=== PATIENT | male | born 1955 | race Caucasian/White ===

== ENCOUNTER 2016-11-06 08:48 | Inpatient (IN) ==
[2016-11-06 10:12] LABS: Basophils # 0.1 K/mcL (0.0-0.2); Basophils % 0.8 %; Eosinophils # 0.1 K/mcL (0.0-0.6); Eosinophils % 1.7 %; Hematocrit 41.5 % (37.5-50.1); Hemoglobin 13.7 g/dL (12.9-16.9); Immature Granulocytes % 0.5 % (0-4); Lymphocytes # 1.6 K/mcL (0.6-4.6); Lymphocytes % 24.2 %; Mean Corpuscular Hemoglobin 30.5 pg (28.0-33.3); Mean Corpuscular Volume 92.4 fL (83.0-100.0); Mean Platelet Volume 9.8 fL (9.4-12.4); Monocytes # 0.5 K/mcL (0.0-1.3); Monocytes % 7.1 %; Neutrophils # 4.2 K/mcL (1.6-8.9); Platelet Count 183 K/mcL (140-400); Red Blood Count 4.49 M/mcL (4.19-5.50); Red Cell Distribution Width 14.3 % (11.5-14.5); Segmented Neutrophils % 65.7 %
--- NOTE | 2016-11-06 10:13 | Orthopedic History & Physical ---
Date of Encounter: 11/06/16 Time of Encounter: 08:00 Assessment and Plan (1) Closed traumatic dislocation of right glenohumeral joint Current visit: Yes Status: Acute BWC* Patient seen today for fracture dislocation of the right shoulder. BWC - work related injury. Recommendation is for admission, STAT CT scan, and plan for either arthroscopic labral repair and rotator cuff repair versus open reduction internal fixation of the right shoulder. This is based on the fact that the x- ray shows small fragments of bone which may not be amenable to fixation with a plate and screws. This will be determined by CAT scan. We reviewed the risks and benefits as well as recovery. All questions were answered. The patient agreed to this treatment plan and appeared to understand the plan is reviewed. CBC, BMP, PT/INR and EKG ordered for pre-operative assessment. Code(s): S43.004A - Unspecified dislocation of right shoulder joint, initial encounter SNOMED Code(s): 45476370084931243 (2) Glenoid fracture of shoulder Current visit: Yes Status: Acute Qualifiers: Encounter type: initial encounter Fracture type: closed Laterality: right Qualified Code(s): S42.141A - Displaced fracture of glenoid cavity of scapula, right shoulder, initial encounter for closed fracture; S42.151A - Displaced fracture of neck of scapula, right shoulder, initial encounter for closed fracture Code(s): S42.143A - Displaced fracture of glenoid cavity of scapula, unspecified shoulder, initial encounter for closed fracture; S42.153A - Displaced fracture of neck of scapula, unspecified shoulder, initial encounter for closed fracture SNOMED Code(s): 45476875 (3) Obesity Current visit: Yes Status: Chronic Qualifiers: Obesity type: due to excess calories Obesity classification: unspecified obesity classification Serious obesity comorbidity presence: without serious comorbidity Qualified Code(s): E66.09 - Other obesity due to excess calories History of Present Illness Chief complaint: Right Shoulder Fracture/Dislocation HPI: Mr. Rodriguez is a 60 year old male, who was seen in the office today by . History obtained from 's office note from this morning. Patient here for evaluation of his right shoulder. Patient reports a fall at work on Sunday injuring the right shoulder. This was issued with acute pain and decreased motion. Patient denies any significant problems with the shoulder prior to this. Patient was seen in the emergency room diagnosed with a fracture dislocation of the right shoulder. Multiple attempts at closed reduction were performed by the ER staff they were successful in reducing the shoulder but it would not stay reduced. Patient was discharged in a sling with the shoulder dislocated. Patient presents today with a dislocated right shoulder Vital Signs BP 134/88 mm Hg, Ht 69 in, Wt 320.10 lbs, BMI 47.27 Index, RR 18 /min, Pain scale 6 1-10. Physical Examination Well-nourished well-developed no acute distress Right upper extremity In sling Reports normal sensation in the axillary patch area on the right as compared to the left but does say this was numb yesterday. Neurovascular intact distally No motion attempted secondary to dislocation. Past Med Surg Social Fam HX - Past Medical History Medical history: no medical history Psychiatric history: no psych history - Social History Smoking Status: Never smoker Smokeless Tobacco Status: No Alcohol use: none Drug use: none - Family History Mother Hx Family Cardiac Disorders: Yes Medications and Allergies HYDROcodone/Acet 5/325 mg [[place] 5-325 mg] 1 tab PO Q6H PRN #10 tab 11/04/16 [Rx ] Naproxen [Naprosyn] 500 mg PO BID PRN #15 tablet 11/04/16 [Rx] 3 Allergy/AdvReac Type Severity Reaction Status Date / Time No Known Allergies Allergy Verified 11/04/16 12:28 All Systems Reviewed: A 10-system review of systems was performed and is negative for pertinent findings except as documented above in the HPI. - Constitutional Constitutional: as per HPI - Cardiovascular Cardiovascular: as per HPI - Respiratory Respiratory: as per HPI - Musculoskeletal Musculoskeletal: as per HPI Physical Exam - Constitutional Exam: See H&P Results - Labs Result Diagrams: 11/06/16 10:02 Labs: All other labs normal.
[2016-11-06 10:23] LABS: INR 1.1; Prothrombin Time 12.1 Seconds (9.4-12.1)
[2016-11-06 10:25] LABS: BUN/Creatinine Ratio 17 (6-26); Blood Urea Nitrogen 19 mg/dL (8-26); Calcium 9.3 mg/dL (8.6-10.8); Carbon Dioxide 28 mEq/L (19-29); Chloride 102 mEq/L (98-109); Glucose 136 mg/dL (70-99); Osmolality,Calculated 294 (280-300); Potassium 3.6 mEq/L (3.5-4.5); Sodium 140 mEq/L (136-145); eGFR For African Americans > 60 (> 60); eGFR For Non-African Americans > 60 (> 60)
[2016-11-06] MEDS ORDERED: *HR* HYDROcodone/Acet 5/325 mg TABLET PO PRN (11:34)
--- NOTE | 2016-11-06 14:53 | Anesthesia Evaluation PreOp ---
Date of Encounter: 11/06/16 Time of Encounter: 14:50 - Past History Planned Operation: ORIF Rt Humerus Cardiac History: Denies any Significant Hx Pulmonary History: Denies Any Significant HX PRODUCE TEAM LEAD History: Denies Any Significant HX Other Medical History: Other (Morbid Obesity) Anesthesia History: No Prior Anesthetic Complications Alcohol Use: none Drug use: none Medications and Allergies HYDROcodone/Acet 5/325 mg [[place] 5-325 mg] 1 tab PO Q6H PRN #10 tab 11/04/16 [Rx ] Naproxen [Naprosyn] 500 mg PO BID PRN #15 tablet 11/04/16 [Rx] 3 Allergy/AdvReac Type Severity Reaction Status Date / Time No Known Allergies Allergy Verified 11/04/16 12:28 - Meds/Allergy Pre-op Review Medications Reviewed: Yes Allergies Reviewed: Yes Beta Blockers on Current Med List: No Anesthesia Results - Labs 11/06/16 10:02 11/06/16 10:02 Anesthesia Exam O2 Sat Height 1.78 m Weight 142.882 kg O2 Sat by Pulse Oximetry 98 Vital Signs Temp Pulse Resp BP Pulse Ox 98.5 F 94 18 158/90 98 11/06/16 12:29 11/06/16 12:29 11/06/16 12:29 11/06/16 12:29 11/06/16 12:29 Height: 5'10 Weight: 315 lbs NPO (# of Hours): MN Pain Scale: 3 - HEENT Pupil (Motor): Pupils equal, EOMI Mallampati: III Teeth: Normal Oral Opening: Less than or equal to 3 - PRODUCE TEAM LEAD LOC: Oriented [employer]ODUCE [employer] LEAD Motor: Normal RUE, Normal LUE, Normal RLE, Normal LLE, Normal Face [employer]ODUCE TE[employer] LEAD Sensory: Normal: RUE, LUE, RLE, LLE, Face - Cardiac Rhythm: Regular Murmur: None JVD: No Carotid Bruit: No - Pulmonary Breath Sounds: bilateral Clear Respiratory Effort: Symmetrical Anesthesia Assess/Plan ASA Score: 3 (MO) Modified [place] Scale for Level of Consciousness: Cooperative, oriented, and tranquil Anesthetic Plan: General, Regional Monitoring Plan: Standard Monitors Recovery Plan: PACU (Discussed GA and posible RA, agrees to proceed)
[2016-11-06] MEDS ORDERED: Famotidine 20 MG/2 ML VIAL ONE (14:57)
[2016-11-06] MEDS ORDERED: Acetaminophen IV 1,000 MG/100 ML INFUS..BTL ONE (14:57)
[2016-11-06] MEDS ORDERED: ROPIVACAINE HCL/PF 0.5% 30 ML VIAL ONE (14:57)
[2016-11-06] MEDS ORDERED: *HR* FentaNYL (PF) 100 MCG/2 ML VIAL ONE ×2 (14:58→15:32)
[2016-11-06] MEDS ORDERED: Lidocaine -MPF 2% 2 ML VIAL ONE (14:58)
[2016-11-06] MEDS ORDERED: *HR* Succinylcholine 200 MG/10 ML VIAL IVP ONE (14:58)
[2016-11-06] MEDS ORDERED: *HR* Midazolam HCl 2 MG/2 ML VIAL ONE (14:58)
[2016-11-06] MEDS ORDERED: *HR* Propofol 200 MG/20 ML VIAL IVP ONE ×2 (14:58→16:11)
[2016-11-06] MEDS ORDERED: ceFAZolin 3,000 MG in D5% in Water 100 ML IVPB ONE (15:06)
[2016-11-06] MEDS ORDERED: Lidocaine -MPF 4% 5 ML AMPUL ONE (15:20)
[2016-11-06] MEDS ORDERED: Ondansetron 4 MG/2 ML VIAL ONE (15:32)
[2016-11-06] MEDS ORDERED: Dexamethasone 4 MG/ML VIAL ONE (15:32)
--- NOTE | 2016-11-06 15:59 | Anesthesia Procedures ---
Date of Encounter: 11/06/16 Time of Encounter: 14:50 Procedures: Anesthesia - Nerve Block Procedure Date: 11/06/16 Time: 15:15 Pre-op Diagnosis: Fracture Rt Humerus Surgical Procedure: ORIF Humerus Checklist: Correct Patient Identifier Correct side: Right Blood Thinner: No Monitor Applied: EKG, BP, Pulse Oximetry Supplemental Oxygen via Nasal Cannula (L/min): 2 Sedation: Versed (mg): 2 Sedation: Fentanyl (mcg): 100 Indication: Post Op Analgesia Pre-op Neuro Deficits: No Block Type: Supraclavicular Catheter placed: No Depth at skin (cm): 4 Sterile Technique: Yes Ultrasound used: Yes Anatomy identified: Yes Visual spread of Local: Yes Neuro Stimulation: No Blood on Needle Aspiration: No Smooth Injection of Local: Yes Pain with Injection of Local: No Prep: Chlorhexadine Needle: 22 x 50 mm Stimuplex Local: Ropivacaine (0.5%) Volume (cc): 30 Number of Attempts: 1 Complications: None/effective block Vitals: Vital Signs/O2 Sat/Glucose, Most Current Temp Pulse Resp BP Pulse Ox 11/06/16 15:01 61 15 135/82 94 11/06/16 12:29 98.5 F 94 18 158/90 98
[2016-11-06] MEDS ORDERED: Ketorolac 30 MG/ML VIAL ONE (16:11)
--- NOTE | 2016-11-06 17:12 | Discharge Summary ---
<Domitila Unger - Last Filed: 11/06/16 17:42> Date of Encounter: 11/06/16 Time of Encounter: 17:44 - Discharge Diagnosis (1) Closed traumatic dislocation of right glenohumeral joint Status: Acute Code(s): S43.004A - Unspecified dislocation of right shoulder joint, initial encounter SNOMED Code(s): 26236783138692542 (2) Glenoid fracture of shoulder Status: Acute Qualifiers: Encounter type: initial encounter Fracture type: closed Laterality: right Qualified Code(s): S42.141A - Displaced fracture of glenoid cavity of scapula, right shoulder, initial encounter for closed fracture; S42.151A - Displaced fracture of neck of scapula, right shoulder, initial encounter for closed fracture Code(s): S42.143A - Displaced fracture of glenoid cavity of scapula, unspecified shoulder, initial encounter for closed fracture; S42.153A - Displaced fracture of neck of scapula, unspecified shoulder, initial encounter for closed fracture SNOMED Code(s): 59017577 (3) Obesity Status: Chronic Qualifiers: Obesity type: due to excess calories Obesity classification: unspecified obesity classification Serious obesity comorbidity presence: without serious comorbidity Qualified Code(s): E66.09 - Other obesity due to excess calories - Discharge Medications Prescriptions: Clindamycin [Cleocin] 150 mg PO Q6HR #8 capsule OxyCODONE Immed Rel [Roxicodone 5 MG] 5 mg PO Q4H PRN #24 tablet PRN Reason: Pain Home Medications: Naproxen [Naprosyn] 500 mg PO BID PRN #15 tablet 11/04/16 [Rx] Clindamycin [Cleocin] 150 mg PO Q6HR #8 capsule 11/06/16 [Rx] OxyCODONE Immed Rel [Roxicodone 5 MG] 5 mg PO Q4H PRN #24 tablet 11/06/16 [Rx] Allergies/Adverse Reactions: 3 Allergy/AdvReac Type Severity Reaction Status Date / Time No Known Allergies Allergy Verified 11/04/16 12:28 Labs on day of discharge: Labs from last 24 hours 11/06/16 11/06/16 11/06/16 10:02 10:02 10:02 WBC 6.5 RBC 4.49 Hgb 13.7 Hct 41.5 MCV 92.4 MCH 30.5 MCHC 33.0 RDW 14.3 Plt Count 183 MPV 9.8 Immature Gran % 0.5 Seg Neutrophils % 65.7 Lymphocytes % 24.2 Monocytes % 7.1 Eosinophils % 1.7 Basophils % 0.8 Neutrophils # 4.2 Lymphocytes # 1.6 Monocytes # 0.5 Eosinophils # 0.1 Basophils # 0.1 PT 12.1 INR 1.1 Sodium 140 Potassium 3.6 Chloride 102 Carbon Dioxide 28 BUN 19 Creatinine 1.10 Est GFR ( Amer) > 60 Est GFR (Non-Af Amer) > 60 BUN/Creatinine Ratio 17 Glucose 136 H Calculated Osmolality 294 Calcium 9.3 - Impressions ITS Impressions Shoulder CT 11/06/16 10:10 IMPRESSION: Comminuted displaced and angulated fractures of the right humerus greater tuberosity at the anterior inferior glenoid as described, consist with sequela dislocation. D/ / 11/06/2016 12:10:38 [facility] Inter[facility]ting Provider: Darin Carlson MD Fluoroscopy 11/06/16 15:55 IMPRESSION: Intraprocedural fluoroscopic spot images as above. See separate procedure report for more information. D/ / Nicholas De Anda MD / Nicholas De Anda MD Interpreting Provider: Nicholas De Anda MD Humerus X-Ray 11/06/16 15:55 IMPRESSION: Intraprocedural fluoroscopic spot images as above. See separate procedure report for more information. D/ / Nicholas De Anda MD / Nicholas De Anda MD Interpreting Provider: Nicholas De Anda MD Date of admission: 11/06/16 09:01 Primary care physician: PCP NONE - Patient Status Disposition: Home, Self-Care Condition: Good - Discharge Instructions Follow Up With: NONE,PCP [Primary Care Provider] - - Hospital Course Hospital course: Mr. Rodriguez is a 60 year old male - Time Spent with Patient Total time spent providing and/or coordinating discharge services: <Artem Wyatt - Last Filed: 11/07/16 06:17> Date of Encounter: 11/07/16 Time of Encounter: 06:16 - Discharge Diagnosis (1) Morbid obesity with BMI of 45.0-49.9, adult Priority: Secondary Status: Chronic (2) Greater tuberosity of humerus fracture Priority: Primary Status: Acute Qualifiers: Encounter type: initial encounter Fracture type: closed Fracture alignment: displaced Laterality: right Qualified Code(s): S42.251A - Displaced fracture of greater tuberosity of right humerus, initial encounter for closed fracture (3) Closed traumatic dislocation of right glenohumeral joint Priority: Primary Status: Acute (4) Glenoid fracture of shoulder Priority: Primary Status: Acute Qualifiers: Encounter type: initial encounter Fracture type: closed Laterality: right Qualified Code(s): S42.141A - Displaced fracture of glenoid cavity of scapula, right shoulder, initial encounter for closed fracture; S42.151A - Displaced fracture of neck of scapula, right shoulder, initial encounter for closed fracture Labs on day of discharge: Labs from last 24 hours 11/06/16 11/06/16 11/06/16 10:02 10:02 10:02 WBC 6.5 RBC 4.49 Hgb 13.7 Hct 41.5 MCV 92.4 MCH 30.5 MCHC 33.0 RDW 14.3 Plt Count 183 MPV 9.8 Immature Gran % 0.5 Seg Neutrophils % 65.7 Lymphocytes % 24.2 Monocytes % 7.1 Eosinophils % 1.7 Basophils % 0.8 Neutrophils # 4.2 Lymphocytes # 1.6 Monocytes # 0.5 Eosinophils # 0.1 Basophils # 0.1 PT 12.1 INR 1.1 Sodium 140 Potassium 3.6 Chloride 102 Carbon Dioxide 28 BUN 19 Creatinine 1.10 Est GFR ( Amer) > 60 Est GFR (Non-Af Amer) > 60 BUN/Creatinine Ratio 17 Glucose 136 H Calculated Osmolality 294 Calcium 9.3 - Impressions ITS Impressions Shoulder CT 11/06/16 10:10 IMPRESSION: Comminuted displaced and angulated fractures of the right humerus greater tuberosity at the anterior inferior glenoid as described, consist with sequela dislocation. D/ / 11/06/2016 12:10:38 Darin Carlson MD / [facility] Interpreting Provider: Darin Carlson MD Date of admission: 11/06/16 09:01 Primary care physician: PCP NONE - Patient Status Functional capacity at discharge: uses cane/walker Overall status at discharge: patient is progressing back to baseline - Hospital Course Hospital course: Mr. Rodriguez is a 60 year old male Status post open reduction internal fixation of glenoid and greater tuberosity right shoulder. Patient doing well discharge stable condition - Time Spent with Patient Total time spent providing and/or coordinating discharge services:
--- NOTE | 2016-11-06 17:18 | Orthopedic Operative Note ---
Date of procedure: 11/06/16 Pre-op diagnosis: Right shoulder fracture dislocation glenoid fracture greater tuberosity fx Post-op diagnosis: same Procedure: Procedure: Open reduction internal fixation right glenoid fracture and right greater tuberosity fracture Estimated blood loss 100 mL Hardware 3 Arthrex 2.9 push lock suture anchors, 6 Arthrex 4.75 swivel lock suture anchors Findings comminuted displaced fracture of anterior inferior glenoid and comminuted displaced fracture of greater tuberosity. Procedure: Patient brought to the operating room and placed on the operating table. After general anesthesia was administered the patient was placed in the modified beachchair position. All pressure points were padded appropriately. The head was stabilized in the neutral position. It should be noted that the patient was morbidly obese. The patient received IV antibiotics prior to skin incision. A standard deltopectoral approach is made to the right shoulder incision made through skin and subcutaneous tissue hemostasis was obtained with Bovie cautery. Using careful blunt dissection cephalic vein was identified and mobilized medially the deltopectoral interval was developed the clavipectoral fascia was incised. The subscap was released off the lesser tuberosity and tagged with #2 FiberWire suture. This exposed the glenoid. Glenoid had a large defect anterior inferior. Palpation of the bony [place] lesion revealed comminuted fragment. The fragment was not large enough to hold a screw. Decision was made to repair this with suture anchors. 3 labral tapes were passed around the soft tissue and bony fragment. This was with the humeral head retracted posterior laterally with a Fukuda retractor. These labral tapes were then secured to the anterior inferior glenoid just medial to the defect. This gave secure fixation and tightened up the anterior band of the anterior inferior glenohumeral ligament complex. This was then irrigated with pulse irrigation. Attention then turned to the greater tuberosity fracture. The arm was brought into internal rotation. The fracture was identified patient had significant comminution of the greater tuberosity. Decision was made to repair this with suture anchors. A 4.75 swivel lock suture anchor was placed in the bony defect. This is with one #2 fiber tape the 2 ends of the fiber tape and the #2 FiberWire suture were passed around the bone fragments through the tendon osseous junction. It was then secured in a suture bridge fashion anterior inferior with a 4.75 swivel lock suture anchor. This is then irrigated with pulse irrigation. The subscap was then repaired with 4 #2 fiber tapes fixed lateral to the lesser tuberosity with 4 Arthrex 4.75 swivel lock suture anchors this gave a strong repair the subscap. The shoulder was closed by the PA. The wound was irrigated the deltopectoral interval was closed with a running #1 PDS suture. Subcutaneous tissues closed with 0 Monocryl suture. Skin was closed with skin nate and Dermabond. Patient place with a sterile dressing and abductor brace. Patient was extubated and transferred to recovery room in stable condition. Anesthesia: GETA Surgeon: Artem Wyatt Condition: stable Disposition: PACU
[2016-11-06] MEDS ORDERED: *HR* OxyCODONE Immed Rel 5 MG TABLET PO PRN ×4 (17:45→18:25)
--- NOTE | 2016-11-06 18:08 | Anesthesia Evaluation Post Op ---
Date of Encounter: 11/06/16 Time of Encounter: 18:07 - Vital Signs Vital Signs: Vital Signs/O2 Sat, Most Current Temp Pulse Resp BP Pulse Ox 97.5 F L 66 20 148/87 95 11/06/16 18:03 11/06/16 18:03 11/06/16 18:03 11/06/16 18:03 11/06/16 18:03 - Lungs Lungs: Clear Ascult./Percussion - Airway Airway: Non-obstructed - Cardiovascular Regular Rate - Mental Status Mental Status: Alert & Oriented, Answers Appropriately - Pain Pain Scale: 0 Pain Scale used: Numeric (1 - 10) - Nausea Vomiting Nausea Vomiting: Not Present - Hydration Hydration: NPO, Has not voided - Discharge PostOp Status: Transfer Patient to floor
--- NOTE | 2016-11-06 18:11 | Electrocardiograph Report ---
[place] [id number] Test Date: 2016-11-06 Pat Name: Grant Rodriguez Department: 114 Room: [facility] Gender: M Drum Sprayer: JJG : 1955 Requested By: Domitila Unger Order Number: [id number] Reading MD: Errol Armstrong MD Measurements Intervals Home Rate: 63 P: 33 VT: 216 QRS: -7 QRSD: 108 T: 28 QT: 439 QTc: 446 Interpretive Statements SINUS RHYTHM WITH FIRST DEGREE AV BLOCK Electronically Signed On 11-06-2016 18:09:31 EDT by Errol Armstrong MD
[2016-11-06 18:18] LABS: Hematocrit 40.9 % (37.5-50.1); Hemoglobin 13.4 g/dL (12.9-16.9)
[2016-11-06] MEDS ORDERED: Ringers Solution, Lactated 1,000 ML IVC SCH (18:25)
[2016-11-06] MEDS ORDERED: Ondansetron 4 MG/2 ML VIAL IVP PRN (18:25)
[2016-11-06] MEDS ORDERED: Temazepam 15 MG CAPSULE PO PRN (18:25)
[2016-11-06] MEDS ORDERED: MOM Conc 10 ML UD.LIQ PO PRN (18:25)
[2016-11-06] MEDS ORDERED: Sennosides 8.6 MG TABLET PO PRN (18:25)
[2016-11-06] MEDS ORDERED: Naloxone 0.4 MG/ML INJ IVP PRN (18:25)
[2016-11-06] MEDS ORDERED: *HR* HYDROmorphone (PF) 1 MG/ML SYRINGE IVP PRN (18:25)
[2016-11-06] MEDS: ceFAZolin 3,000 MG in D5% in Water 100 ML IVPB SCH (20:30)
[2016-11-07] MEDS: ceFAZolin 3,000 MG in D5% in Water 100 ML IVPB SCH (02:50)
[2016-11-07 05:59] LABS: Hematocrit 42.4 % (37.5-50.1); Hemoglobin 14.2 g/dL (12.9-16.9)
--- NOTE | 2016-11-07 06:18 | Orthopedics Progress Note ---
Date of Encounter: 11/07/16 Time of Encounter: 06:17 - Assessment and Plan (1) Morbid obesity with BMI of 45.0-49.9, adult Current Visit: Yes Status: Chronic (2) Greater tuberosity of humerus fracture Current Visit: Yes Status: Acute Qualifiers: Encounter type: initial encounter Fracture type: closed Fracture alignment: displaced Laterality: right Qualified Code(s): S42.251A - Displaced fracture of greater tuberosity of right humerus, initial encounter for closed fracture (3) Closed traumatic dislocation of right glenohumeral joint Current Visit: Yes Status: Acute (4) Glenoid fracture of shoulder Current Visit: Yes Status: Acute Qualifiers: Encounter type: initial encounter Fracture type: closed Laterality: right Qualified Code(s): S42.141A - Displaced fracture of glenoid cavity of scapula, right shoulder, initial encounter for closed fracture; S42.151A - Displaced fracture of neck of scapula, right shoulder, initial encounter for closed fracture Subjective Interval history: Patient was seen this morning doing well without complaints. Afebrile vital signs stable. Operative extremity: Neurovascularly intact Dressing clean dry and intact Calves nontender Assessment and plan: Continue with postoperative care Discharge today hematocrit 42 Objective Vital signs: Vital Signs Temp Pulse Resp BP Pulse Ox 11/07/16 05:55 98.0 F 61 18 159/95 93 11/07/16 00:10 98.8 F 81 16 133/80 95 11/06/16 18:20 97.9 F 85 16 123/85 95 11/06/16 18:03 97.5 F L 66 20 148/87 95 11/06/16 17:52 77 20 132/84 95 11/06/16 17:42 71 16 140/84 97 11/06/16 17:32 99.0 F 70 18 101/91 98 11/06/16 15:01 61 15 135/82 94 11/06/16 12:29 98.5 F 94 18 158/90 98 11/06/16 11:45 97.9 F 83 16 129/81 94 Intake and Output 11/06/16 11/06/16 11/07/16 15:59 23:59 07:59 Intake Total 0 / 0 100 / 100 Output Total 100 / 100 900 / 900 Balance 0 / 0 0 / 0 -900 / -900 Intake: IV Fluids 100 / 100 Ancef 3,000 MG In 100 / 100 Dextrose 5% 100 ML @ 200 mls/hr IVPB Q8H [facility] Rx#: [id number] Oral 0 / 0 Output: Urine 0 / 0 900 / 900 Estimated Blood Loss 100 / 100 Other: Meal NPO Weight 142.882 kg - Labs CBC & BMP: 11/07/16 05:43 11/06/16 10:02 Labs: Abnormal lab results Glucose 136 mg/dL (70-99) H 11/06/16 10:02 - VTE Documentation of Mechanical Device: Venous foot pump, device Consult Discharge Plan - Plan Referrals: NONE,PCP [Primary Care Provider] - Prescriptions: Clindamycin [Cleocin] 150 mg PO Q6HR #8 capsule OxyCODONE Immed Rel [Roxicodone 5 MG] 5 mg PO Q4H PRN #24 tablet PRN Reason: Pain
[2016-11-07 08:09] VITALS: BP 152/92
== END 2016-11-07 10:17 | disposition home or self-care (01) | DRG 493 ==
LOC: 3NENU
PROVIDERS: ADMIT Orthopaedic Surgery; ATTEND Orthopaedic Surgery